=== PATIENT | female | born 1960 | race Two or more races ===

== ENCOUNTER 2017-07-14 15:49 | Emergency (ER) | payer OTHER ==
[~2017-07-14] VITALS: Ht 154.9 cm; Wt 84.4 kg
[~2017-07-14 15:49] MED LIST: ACYC800 PO; AMOX500 PO; AMOX875 PO; Acetaminophen650 M1 PO; Bentyl20 MG PO; CEPH500 PO; CIPR500 PO; CYCL10 PO; Cipro500 MG PO; Colace100 MG PO; DOCU100 PO; ESTR.1TPW TOP; FLUO10 PO; Flagyl500 MG PO; GAVILAX17 GM PO; GUAI600T33 PO; HYDACE5 PO; HYDMOR2 PO; IBUP600 PO; KETO75 PO; Keflex500 MG PO; LEVFLO500 PO; LORA1 PO; METR500 PO; MIMVEY 1-0.5 M1 EACH PO; MYRBETRIQ25 MG PO; NAPR500 PO; NEOPOLHCSU OT; NITR100CA PO; Naprosyn500 MG PO; Norco 5-325 Ta1 EACH PO; Norco 7.5-3251 EACH PO; ONDA4 PO; ONDA4ODT MM; OXYACE5T PO; OXYB5 PO; OXYC5 PO; PHENA200 PO; Percocet 10-321 EACH PO; Percocet 5-3251 EACH PO; RXHYDACE PO; Robaxin500 MG PO; SULTRIDS PO; TOBR.3OPSO OP; TOLT4; TROSPIUM CHLORI20 MG PO; [UNRECOGNIZED DRUG - REMARK]
[2017-07-14] MEDS ORDERED: LOSA25 PO (16:29)
[2017-07-14] MEDS ORDERED: Bupropion Xl150 MG PO (16:30)
[2017-07-14] MEDS ORDERED: TRAZ50 PO (16:31)
== END 2017-07-14 17:53 | disposition home or self-care (01) ==
LOC: ER 15:49
DX: K94.13 Enterostomy malfunction (principal); Z79.899 Other long term (current) drug therapy; Z87.891 Personal history of nicotine dependence

== ENCOUNTER → 2017-09-06 | Outpatient (CLI) | payer OTHER ==
[~2017-09-06] MED LIST changes: +Bupropion Xl150 MG PO; +LOSA25 PO; +TRAZ50 PO
== END | disposition home or self-care (01) ==
LOC: LAB 11:14 → LAB SHORT 11:14
PROVIDERS: Advanced Practice Midwife
DX: Z01.419 Encounter for gynecological examination (general) (routine) without abnormal findings (principal)
CPT/HCPCS: 87624; G0123

== ENCOUNTER 2018-11-16 21:11 | Emergency (ER) | payer OTHER ==
[~2018-11-16] VITALS: Ht 154.9 cm; Wt 97.5 kg
[2018-11-16] MEDS ORDERED: Paxil20 MG PO (21:37)
[2018-11-16] MEDS ORDERED: CYCL10 PO (21:52)
[2018-11-16] MEDS ORDERED: IBU600 MG PO (21:52)
[2018-11-16] MEDS ORDERED: LIDO700A20 TOP (21:52)
[2018-11-16 22:01] LABS: BASOPHILS ABSOLUTE AUTO 0.05 K/mm3 (0.00-0.23); BASOPHILS PERCENT AUTO 1 % (0-2); EOSINOPHILS PERCENT AUTO 2 % (0-6); Hematocrit 41.3 % (33.0-51.0); Hemoglobin 13.5 g/dL (11.5-16.0); IMMATURE GRAN ABSOLUTE AUTO 0.02 K/mm3 (0.00-0.10); IMMATURE GRAN PERCENT AUTO 0 % (0-1); LYMPHOCYTES ABSOLUTE AUTO 2.69 K/mm3 (0.84-5.20); LYMPHOCYTES PERCENT AUTO 26 % (21-46); MONOCYTES ABSOLUTE AUTO 0.61 K/mm3 (0.16-1.47); MONOCYTES PERCENT AUTO 6 % (4-13); Mean Corpuscular HGB Conc 32.7 g/dL (31.5-36.5); Mean Corpuscular Volume 86 fL (80-100); Mean Platelet Volume 10.3 fL (9.1-12.4); NEUTROPHILS ABSOLUTE AUTO 6.85 K/mm3 (1.96-9.15); NEUTROPHILS PERCENT AUTO 66 % (41-73); Platelet Count 261 K/mm3 (150-400); RDW Coefficient Variation 14.9 % (11.7-14.2); RDW Standard Deviation 47.3 fL (35.1-46.3); Red Blood Cell Count 4.83 M/mm3 (3.80-5.20); White Blood Cell Count 10.42 K/mm3 (4.00-11.30)
[2018-11-16 22:22] LABS: Alanine Aminotransfer (ALT/SGP 29 U/L (12-78); Albumin, Blood 3.5 g/dL (3.4-5.0); Albumin/Globulin Ratio 0.9 (0.8-1.8); Alk Phos 113 U/L (50-136); Anion Gap 8 mmol/L (6-16); Aspartate Aminotrans (AST/SGOT 18 U/L (12-37); Bilirubin, Total 0.3 mg/dL (0.1-1.0); Blood Urea Nitrogen 30 mg/dL (8-24); Bun/Creatinine Ratio 39.1 (12.0-20.0); CO2, Blood 26 mmol/L (21-32); Calcium, Blood 8.3 mg/dL (8.5-10.1); Chloride, Blood 113 mmol/L (98-108); Creatinine, Blood 0.77 mg/dL (0.40-1.00); Globulin, Blood 3.7 g/dL (2.2-4.0); Glomerular Filtration Rate >60 (60-); Glucose, Blood 134 mg/dL (70-99); Potassium, Blood 3.4 mmol/L (3.5-5.5); Sodium, Blood 147 mmol/L (136-145); Total Protein, Blood 7.2 g/dL (6.4-8.2); Troponin I <0.015 ng/mL (0.000-0.040)
== END 2018-11-16 23:37 | disposition home or self-care (01) ==
LOC: ER 21:11
PROVIDERS: Emergency Medicine
DX: S46.911A Strain of unspecified muscle, fascia and tendon at shoulder and upper arm level, right arm, initial encounter (principal); X58.XXXA Exposure to other specified factors, initial encounter; Z87.891 Personal history of nicotine dependence
CPT/HCPCS: 36415; 71046; 80053; 83880; 84484; 85025; 93005; 93010; 96374; 99284-25; J1885

== ENCOUNTER 2020-01-14 21:03 | Emergency (ER) | payer OTHER ==
[~2020-01-14] VITALS: Ht 154.9 cm; Wt 103.4 kg
[~2020-01-14 21:03] MED LIST changes: +IBU600 MG PO; +LIDO700A20 TOP; +Paxil20 MG PO
== END 2020-01-14 23:26 | disposition home or self-care (01) ==
LOC: ER 21:03
DX: S61.212A Laceration without foreign body of right middle finger without damage to nail, initial encounter (principal); Z87.891 Personal history of nicotine dependence; W26.9XXA Contact with unspecified sharp object(s), initial encounter
CPT/HCPCS: 12001; 99282

== ENCOUNTER 2021-03-09 01:08 | Observation (INO) | payer OTHER ==
[~2021-03-09] VITALS: Ht 154.9 cm; Wt 102.5 kg
[2021-03-09 01:55] LABS: BASOPHILS ABSOLUTE AUTO 0.06 K/mm3 (0.00-0.23); BASOPHILS PERCENT AUTO 1 % (0-2); EOSINOPHILS ABSOLUTE AUTO 0.25 K/mm3 (0.00-0.68); EOSINOPHILS PERCENT AUTO 2 % (0-6); Hematocrit 44.8 % (33.0-51.0); IMMATURE GRAN ABSOLUTE AUTO 0.05 K/mm3 (0.00-0.10); IMMATURE GRAN PERCENT AUTO 1 % (0-1); LYMPHOCYTES ABSOLUTE AUTO 3.19 K/mm3 (0.84-5.20); LYMPHOCYTES PERCENT AUTO 31 % (21-46); MONOCYTES ABSOLUTE AUTO 0.67 K/mm3 (0.16-1.47); MONOCYTES PERCENT AUTO 7 % (4-13); Mean Corpuscular HGB 28.5 pg (26.0-34.0); Mean Corpuscular HGB Conc 33.5 g/dL (31.5-36.5); Mean Corpuscular Volume 85 fL (80-100); Mean Platelet Volume 10.1 fL (9.1-12.4); NEUTROPHILS ABSOLUTE AUTO 6.11 K/mm3 (1.96-9.15); NEUTROPHILS PERCENT AUTO 59 % (41-73); Platelet Count 319 K/mm3 (150-400); RDW Coefficient Variation 15.8 % (11.7-14.2); RDW Standard Deviation 49.1 fL (35.1-46.3); Red Blood Cell Count 5.26 M/mm3 (3.80-5.20); White Blood Cell Count 10.33 K/mm3 (4.00-11.30)
[2021-03-09 02:08] LABS: Alanine Aminotransfer (ALT/SGP 40 U/L (12-78); Albumin, Blood 3.5 g/dL (3.4-5.0); Albumin/Globulin Ratio 0.9 (0.8-1.8); Alk Phos 104 U/L (50-136); Anion Gap 9 mmol/L (6-16); Aspartate Aminotrans (AST/SGOT 28 U/L (12-37); Bilirubin, Total 0.3 mg/dL (0.1-1.0); Blood Urea Nitrogen 25 mg/dL (8-24); Bun/Creatinine Ratio 30.3 (12.0-20.0); CO2, Blood 25 mmol/L (21-32); Calcium, Blood 9.4 mg/dL (8.5-10.1); Chloride, Blood 109 mmol/L (98-108); Creatinine, Blood 0.82 mg/dL (0.40-1.00); Globulin, Blood 3.7 g/dL (2.2-4.0); Glomerular Filtration Rate >60 (60-); Glucose, Blood 139 mg/dL (70-99); Potassium, Blood 4.1 mmol/L (3.5-5.5); Sodium, Blood 143 mmol/L (136-145); Total Protein, Blood 7.2 g/dL (6.4-8.2); Troponin I <0.015 ng/mL (0.000-0.040)
[2021-03-09 04:15] LABS: Influenza A, PCR NEGATIVE (NEGATIVE); Influenza B, PCR NEGATIVE (NEGATIVE); Resp Syncytial Virus, PCR NEGATIVE (NEGATIVE); SARS-Cov-2 (COVID-19) PCR, MMC NEGATIVE (NEGATIVE)
--- NOTE | 2021-03-09 07:09 | NUR ---
PT ARRIVED TO FLOOR FROM ER. PT A/O, VSS. PT REP MILD RUQ ABD PAIN MINIMAL, DECLINES NEED FOR PAIN MEDS. PT DENIES N/V. PT ORIENTED TO ROOM/CALL LIGHT, AND NPO STATUS. IVF RUNNING PER ORDERS. REPORT GIVEN TO DAY RN.
--- NOTE | 2021-03-09 12:35 | NUR ---
PT TO CT VIA WC
--- NOTE | 2021-03-09 13:07 | NUR ---
RETURNS FROM CT, IVF CONTINUED. MEDICATED FOR PAIN.
--- NOTE | 2021-03-09 17:45 | NUR ---
SHIFT SUMMARY DR GRIMES INTO SEE PT MID MORNING & ORDERED CT. PER CT RESULTS, HIDA SCAN ORDERED. DUE TO LATE NARCOTICS GIVEN & STAFFING/SCHEDULING IN IMAGING, HIDA WILL BE SCHEDULED TOMORROW @ 1000. NPO AFTER MN & NO NARCOTICS AFTER 0200. CLEAR LQ's AT THIS TIME; TOLERATING WELL.
--- NOTE | 2021-03-10 05:12 | NUR ---
SHIFT SUMMARY PT A/OX4, VS STABLE BUT SLIGHTLY HYPOTENSIVE AT TIMES. ASYMPTOMATIC. PT STATES LOW BLOOD PRESSURE IS "NORMAL." ABDOMINAL PAIN CONTROLLED OVER NIGHT X1 WITH PRN MEDS. ABD ROUND AND SOFT. HERNIA NOTED UPON ASSESSMENT. CONTINUOUS FLUIDS AND ANTIBIOTIC GIVEN PER ORDERS. VOIDING WITHOUT COMPLICATION.
--- NOTE | 2021-03-10 10:00 | NUR ---
[facility]
--- NOTE | 2021-03-10 14:50 | NUR ---
Pt. discharged to home. Family here to take pt. home. dc instructions explained and copy sent with pt.- personal belongings sent with pt. , denies pain at this time, denies nausea. w/c to exit.
== END 2021-03-10 14:59 | disposition home or self-care (01) ==
LOC: ER 01:08 → ERHOLD 01:09 → SURS 01:09
PROVIDERS: Emergency Medicine; ADMIT Surgery
DX: R10.11 Right upper quadrant pain (principal); K43.2 Incisional hernia without obstruction or gangrene; K80.20 Calculus of gallbladder without cholecystitis without obstruction; K76.0 Fatty (change of) liver, not elsewhere classified; E66.9 Obesity, unspecified; Z90.49 Acquired absence of other specified parts of digestive tract; Z87.19 Personal history of other diseases of the digestive system; Z87.891 Personal history of nicotine dependence; Z98.1 Arthrodesis status; Z20.822 Contact with and (suspected) exposure to COVID-19; Z68.41 Body mass index [BMI] 40.0-44.9, adult
CPT/HCPCS: 0241U; 74177; 76705; 78226; 80053; 83690; 84484; 85025; 93005; 93010; 96365; 96367; 96375; 96376; 99285-25; A9537; G0378; J0694; J0696; J1885; J2270; J2405; J3010; J7120; Q9967

== ENCOUNTER 2022-01-06 03:48 | Emergency (ER) | payer OTHER ==
[~2022-01-06] VITALS: Ht 154.9 cm; Wt 91.2 kg
[~2022-01-06 03:48] MED LIST changes: +MELO7.5
[2022-01-06 04:34] LABS: BASOPHILS ABSOLUTE AUTO 0.06 K/mm3 (0.00-0.23); BASOPHILS PERCENT AUTO 1 % (0-2); EOSINOPHILS ABSOLUTE AUTO 0.17 K/mm3 (0.00-0.68); EOSINOPHILS PERCENT AUTO 2 % (0-6); Hematocrit 44.5 % (33.0-51.0); Hemoglobin 15.1 g/dL (11.5-16.0); IMMATURE GRAN ABSOLUTE AUTO 0.05 K/mm3 (0.00-0.10); IMMATURE GRAN PERCENT AUTO 1 % (0-1); LYMPHOCYTES ABSOLUTE AUTO 2.35 K/mm3 (0.84-5.20); LYMPHOCYTES PERCENT AUTO 23 % (21-46); MONOCYTES ABSOLUTE AUTO 0.71 K/mm3 (0.16-1.47); MONOCYTES PERCENT AUTO 7 % (4-13); Mean Corpuscular HGB 29.4 pg (26.0-34.0); Mean Corpuscular HGB Conc 33.9 g/dL (31.5-36.5); Mean Corpuscular Volume 87 fL (80-100); Mean Platelet Volume 10.4 fL (9.1-12.4); NEUTROPHILS ABSOLUTE AUTO 7.05 K/mm3 (1.96-9.15); NEUTROPHILS PERCENT AUTO 68 % (41-73); Platelet Count 240 K/mm3 (150-400); RDW Coefficient Variation 14.4 % (11.7-14.2); RDW Standard Deviation 46.3 fL (35.1-46.3); Red Blood Cell Count 5.14 M/mm3 (3.80-5.20); White Blood Cell Count 10.39 K/mm3 (4.00-11.30)
[2022-01-06 05:11] LABS: Albumin, Blood 3.3 g/dL (3.4-5.0); Albumin/Globulin Ratio 0.9 (0.8-1.8); Bilirubin, Total 0.5 mg/dL (0.1-1.0); Bun/Creatinine Ratio 38.7 (12.0-20.0); Calcium, Blood 8.5 mg/dL (8.5-10.1); Creatinine, Blood 0.7 mg/dL (0.40-1.00); Globulin, Blood 3.7 g/dL (2.2-4.0); Magnesium, Blood 2.3 mg/dL (1.6-2.4); Potassium, Blood 3.4 mmol/L (3.5-5.5)
[2022-01-06 05:34] LABS: Influenza A, PCR NEGATIVE (NEGATIVE); Influenza B, PCR NEGATIVE (NEGATIVE); Resp Syncytial Virus, PCR NEGATIVE (NEGATIVE); SARS-Cov-2 (COVID-19) PCR, MMC NEGATIVE (NEGATIVE)
[2022-01-06] MEDS ORDERED: DOC250 PO (07:16)
[2022-01-06] MEDS ORDERED: ONDA4ODT MM (07:16)
== END 2022-01-06 07:44 | disposition home or self-care (01) ==
LOC: ER 03:48
PROVIDERS: Student in an Organized Health Care Education/Training Program
DX: K43.9 Ventral hernia without obstruction or gangrene (principal); E87.6 Hypokalemia; R11.2 Nausea with vomiting, unspecified; G89.29 Other chronic pain; M54.50 Low back pain, unspecified; Z20.822 Contact with and (suspected) exposure to COVID-19; Z87.891 Personal history of nicotine dependence
CPT/HCPCS: 0241U; 36415; 74177; 80053; 83690; 83735; 85025; 93005; 93010; 96374-59; 99284-25; A9270; J1885; Q9967

== ENCOUNTER 2022-06-01 04:13 | Emergency (ER) | payer OTHER ==
[~2022-06-01] VITALS: Ht 154.9 cm; Wt 86.2 kg
[~2022-06-01 04:13] MED LIST changes: +DOC250 PO
[2022-06-01] MEDS ORDERED: MELO7.5 (04:56)
[2022-06-01] MEDS ORDERED: Cyclobenzaprine5 MG (04:57)
[2022-06-01 05:17] LABS: BASOPHILS ABSOLUTE AUTO 0.05 K/mm3 (0.00-0.23); BASOPHILS PERCENT AUTO 1 % (0-2); EOSINOPHILS ABSOLUTE AUTO 0.18 K/mm3 (0.00-0.68); EOSINOPHILS PERCENT AUTO 2 % (0-6); Hematocrit 44.1 % (33.0-51.0); Hemoglobin 15.2 g/dL (11.5-16.0); IMMATURE GRAN ABSOLUTE AUTO 0.02 K/mm3 (0.00-0.10); IMMATURE GRAN PERCENT AUTO 0 % (0-1); LYMPHOCYTES ABSOLUTE AUTO 2.73 K/mm3 (0.84-5.20); LYMPHOCYTES PERCENT AUTO 35 % (21-46); MONOCYTES ABSOLUTE AUTO 0.54 K/mm3 (0.16-1.47); MONOCYTES PERCENT AUTO 7 % (4-13); Mean Corpuscular HGB 29.1 pg (26.0-34.0); Mean Corpuscular HGB Conc 34.5 g/dL (31.5-36.5); Mean Corpuscular Volume 84 fL (80-100); Mean Platelet Volume 10.6 fL (9.1-12.4); NEUTROPHILS ABSOLUTE AUTO 4.33 K/mm3 (1.96-9.15); NEUTROPHILS PERCENT AUTO 55 % (41-73); Platelet Count 244 K/mm3 (150-400); RDW Coefficient Variation 14.3 % (11.7-14.2); RDW Standard Deviation 44.3 fL (35.1-46.3); Red Blood Cell Count 5.23 M/mm3 (3.80-5.20); White Blood Cell Count 7.85 K/mm3 (4.00-11.30)
[2022-06-01 05:26] LABS: Source, Urine Straight Cath
[2022-06-01 05:32] LABS: Appearance, Urine Hazy (Clear); Bilirubin, Urine Neg (Neg); Blood, Urine 5+ (Neg); Color, Urine Yellow (P-Yellow); Glucose Qualitative, Urine Neg (Neg); Ketones, Urine Neg (Neg); Leukocyte Esterase, Urine Neg (Neg); Nitrite, Urine Pos (Neg); Protein, Urine 1+ (Neg); Urobilinogen, Urine NORM (Normal)
[2022-06-01 06:10] LABS: Calcium, Ionized (POC) 0.93 mmol/L (1.10-1.46); Chloride (POC) 113 mmol/L (98-108); Creatinine (POC) 0.5 mg/dL (0.6-1.0); Glucose (ISTAT POC) 84 mg/dL (70-99); Hemoglobin (POC) 9.5 g/dL (12.0-16.0); Potassium (POC) 2.5 mmol/L (3.5-5.5); Sodium (POC) 145 mmol/L (135-148); Total CO2 (POC) 17 mmol/L (21-32)
[2022-06-01 06:14] LABS: Bacteria Mod /hpf; Squamous Epithelial Cells Mod /hpf (Few); White Blood Cells, Urine 0-2 /hpf (0-5)
[2022-06-01 09:19] LABS: Test Name CHEM 8
[2022-06-01 12:37] LABS: Result SEE SEPERATE REPORT
== END 2022-06-01 07:33 | disposition home or self-care (01) ==
LOC: ER 04:13
PROVIDERS: Student in an Organized Health Care Education/Training Program
DX: R10.12 Left upper quadrant pain (principal); R11.2 Nausea with vomiting, unspecified; Z79.899 Other long term (current) drug therapy; Z87.891 Personal history of nicotine dependence
CPT/HCPCS: 51701; 74177; 80047; 80048; 81001; 85014; 85025; 87077; 87086; 87186; 93005; 93010; 96361; 96374-59; 96375-59; 99284-25; J2270; J2405; J7030; Q9967

== ENCOUNTER → 2022-07-25 | Outpatient (CLI) | payer OTHER ==
[~2022-07-25] MED LIST changes: +Cyclobenzaprine5 MG
[2022-07-26 18:11] LABS: ANA DIRECT Negative (Negative); ANTI-DNA (DS) AB QN <1 IU/mL (0-9); RNP ANTIBODIES <0.2 AI (0.0-0.9); SJOGREN'S ANTI-SS-A <0.2 AI (0.0-0.9); SJOGREN'S ANTI-SS-B <0.2 AI (0.0-0.9); SMITH ANTIBODIES <0.2 AI (0.0-0.9)
== END | disposition home or self-care (01) ==
LOC: LAB SHORT 13:06
PROVIDERS: Family Medicine
DX: M13.849 Other specified arthritis, unspecified hand (principal)
CPT/HCPCS: 85651; 86141

== ENCOUNTER 2022-10-31 11:59 | Emergency (ER) | payer OTHER ==
[~2022-10-31] VITALS: Ht 152.4 cm; Wt 82.5 kg
[2022-10-31 12:31] VITALS: BP 164/96
[2022-10-31 12:58] LABS: BASOPHILS ABSOLUTE AUTO 0.05 K/mm3 (0.00-0.23); BASOPHILS PERCENT AUTO 1 % (0-2); EOSINOPHILS ABSOLUTE AUTO 0.16 K/mm3 (0.00-0.68); EOSINOPHILS PERCENT AUTO 2 % (0-6); Hematocrit 40.4 % (33.0-51.0); Hemoglobin 13.4 g/dL (11.5-16.0); IMMATURE GRAN ABSOLUTE AUTO 0.01 K/mm3 (0.00-0.10); IMMATURE GRAN PERCENT AUTO 0 % (0-1); LYMPHOCYTES ABSOLUTE AUTO 2.04 K/mm3 (0.84-5.20); LYMPHOCYTES PERCENT AUTO 29 % (21-46); MONOCYTES ABSOLUTE AUTO 0.61 K/mm3 (0.16-1.47); MONOCYTES PERCENT AUTO 9 % (4-13); Mean Corpuscular HGB 27.9 pg (26.0-34.0); Mean Corpuscular HGB Conc 33.2 g/dL (31.5-36.5); Mean Corpuscular Volume 84 fL (80-100); Mean Platelet Volume 10.2 fL (9.1-12.4); NEUTROPHILS ABSOLUTE AUTO 4.26 K/mm3 (1.96-9.15); NEUTROPHILS PERCENT AUTO 60 % (41-73); Platelet Count 258 K/mm3 (150-400); RDW Coefficient Variation 14.1 % (11.7-14.2); RDW Standard Deviation 43.5 fL (35.1-46.3); White Blood Cell Count 7.13 K/mm3 (4.00-11.30)
[2022-10-31 13:27] LABS: Albumin, Blood 3.3 g/dL (3.4-5.0); Albumin/Globulin Ratio 0.9 (0.8-1.8); Bilirubin, Total 0.4 mg/dL (0.1-1.0); Bun/Creatinine Ratio 28.4 (12.0-20.0); Calcium, Blood 8.2 mg/dL (8.5-10.1); Creatinine, Blood 0.88 mg/dL (0.40-1.00); Globulin, Blood 3.6 g/dL (2.2-4.0); Potassium, Blood 3.6 mmol/L (3.5-5.5); Total Protein, Blood 6.9 g/dL (6.4-8.2)
== END 2022-10-31 16:16 | disposition home or self-care (01) ==
LOC: ER 11:59
PROVIDERS: Physician Assistant
DX: R51.9 Headache, unspecified (principal); Z79.899 Other long term (current) drug therapy; M19.90 Unspecified osteoarthritis, unspecified site; Z87.891 Personal history of nicotine dependence
CPT/HCPCS: 70450; 80053; 85025; J1200; J1885; J2765; J7030

== ENCOUNTER → 2022-11-12 | Outpatient (CLI) | payer OTHER ==
[2022-11-14 09:17] LABS: C DIFFICILE DNA NEGATIVE (Negative)
== END ==
LOC: LAB SHORT 09:05 → LAB 09:05 → LAB SHORT 11-13 09:05
PROVIDERS: Family Medicine
DX: K52.9 Noninfective gastroenteritis and colitis, unspecified (principal)
CPT/HCPCS: 87493; 89055

== ENCOUNTER → 2022-11-13 | Outpatient (CLI) | payer OTHER | LOC: LAB 13:15 → LAB SHORT 13:15 | DX: K52.9 Noninfective gastroenteritis and colitis, unspecified (principal) | CPT/HCPCS: 87177; 87209 ==

== ENCOUNTER → 2023-01-17 | Outpatient (CLI) | payer OTHER ==
[2023-01-19 12:55] LABS: Campylobacter Sp Not Detected (NOT DETECT); Enteroaggregative E. coli-EAEC Not Detected (NOT DETECT); Plesiomonas Shigelloides Not Detected (NOT DETECT); Salmonella Sp Not Detected (NOT DETECT); Vibrio Cholerae Not Detected (NOT DETECT); Vibrio Sp Not Detected (NOT DETECT); Yersinia Enterocolitica Not Detected (NOT DETECT)
[2023-01-19 12:56] LABS: Enteropathogenic E. coli-EPEC Detected (NOT DETECT); Enterotoxigenic E. coli-ETEC Not Detected (NOT DETECT)
[2023-01-19 12:57] LABS: Adenovirus F 40/41 Not Detected (NOT DETECT); Astrovirus Not Detected (NOT DETECT); Cryptosporidium Not Detected (NOT DETECT); Cyclospora Cayetanensis Not Detected (NOT DETECT); E. Coli O157 Not Detected (NOT DETECT); Entamoeba Histolytica Not Detected (NOT DETECT); Giardia Lamblia Not Detected (NOT DETECT); Norovirus GI/GII Not Detected (NOT DETECT); Shiga Toxin-prod E. coli-STEC Not Detected (NOT DETECT); Shigella/Enteroin E. coli-EIEC Not Detected (NOT DETECT)
[2023-01-19 12:58] LABS: Rotavirus A Not Detected (NOT DETECT); Sapovirus Not Detected (NOT DETECT)
== END | disposition home or self-care (01) ==
LOC: LAB SHORT 08:00 → LAB 08:00 → LAB FUT 01-16 07:55
PROVIDERS: Internal Medicine Gastroenterology
DX: R19.7 Diarrhea, unspecified (principal)
CPT/HCPCS: 87507

== ENCOUNTER → 2023-11-12 | Outpatient (CLI) | payer OTHER ==
[~2023-11-12] MED LIST changes: +DONE10 PO; +ESCI10 PO; +ZEBUTAL 50-3251 EAC1 PO
== END ==
LOC: LAB SHORT 17:08 → LAB 17:08
DX: R51.9 Headache, unspecified (principal)
CPT/HCPCS: 87077; 87086; 87186

== ENCOUNTER 2024-01-01 12:53 | Emergency (ER) | payer OTHER ==
[~2024-01-01] VITALS: Ht 154.9 cm; Wt 108.9 kg
[~2024-01-01 12:53] MED LIST changes: +MELO7.5 PO
[2024-01-01 13:36] LABS: BASOPHILS ABSOLUTE AUTO 0.03 K/mm3 (0.00-0.23); BASOPHILS PERCENT AUTO 0 % (0-2); EOSINOPHILS ABSOLUTE AUTO 0.16 K/mm3 (0.00-0.68); EOSINOPHILS PERCENT AUTO 1 % (0-6); Hematocrit 44.1 % (33.0-51.0); IMMATURE GRAN PERCENT AUTO 1 % (0-1); LYMPHOCYTES ABSOLUTE AUTO 2.45 K/mm3 (0.84-5.20); LYMPHOCYTES PERCENT AUTO 20 % (21-46); MONOCYTES ABSOLUTE AUTO 0.85 K/mm3 (0.16-1.47); MONOCYTES PERCENT AUTO 7 % (4-13); Mean Corpuscular HGB 28.9 pg (26.0-34.0); Mean Corpuscular Volume 85 fL (80-100); Mean Platelet Volume 10.2 fL (9.1-12.4); NEUTROPHILS ABSOLUTE AUTO 8.65 K/mm3 (1.96-9.15); NEUTROPHILS PERCENT AUTO 71 % (41-73); Platelet Count 279 K/mm3 (150-400); RDW Coefficient Variation 15.2 % (11.7-14.2); RDW Standard Deviation 47.1 fL (35.1-46.3); Red Blood Cell Count 5.19 M/mm3 (3.80-5.20); White Blood Cell Count 12.24 K/mm3 (4.00-11.30)
[2024-01-01 13:50] LABS: Albumin, Blood 3.5 g/dL (3.4-5.0); Albumin/Globulin Ratio 0.9 (0.8-1.8); Bilirubin, Total 0.5 mg/dL (0.1-1.0); Bun/Creatinine Ratio 44.9 (12.0-20.0); Calcium, Blood 8.8 mg/dL (8.5-10.1); Creatinine, Blood 0.78 mg/dL (0.40-1.00); Globulin, Blood 3.9 g/dL (2.2-4.0); Potassium, Blood 4.2 mmol/L (3.5-5.5); Total Protein, Blood 7.4 g/dL (6.4-8.2)
[2024-01-01] MEDS ORDERED: Lisinopril2.5 MG PO (15:38)
[2024-01-01] MEDS ORDERED: GEMTESA75 MG PO (15:38)
[2024-01-01] MEDS ORDERED: AMOX250 PO (15:40)
[2024-01-01] MEDS ORDERED: Prochlorperazine Edisylate 10 mg Vial IV ONE (17:35)
[2024-01-01] MEDS ORDERED: DiphenhydrAMINE HCL 25 MG Cap PO ONE (17:40)
[2024-01-01 18:47] VITALS: BP 113/67
== END 2024-01-01 19:00 | disposition home or self-care (01) ==
LOC: ER 12:53
PROVIDERS: Physician Assistant
DX: R51.9 Headache, unspecified (principal); Z87.891 Personal history of nicotine dependence; Z79.899 Other long term (current) drug therapy
CPT/HCPCS: 64405; 80053; 85025; 96374-59; 99284-25; A9270; J0780

== ENCOUNTER 2024-05-21 15:42 | Emergency (ER) | payer OTHER ==
[~2024-05-21] VITALS: Ht 154.9 cm; Wt 98.9 kg
[~2024-05-21 15:42] MED LIST changes: +AMOX250 PO; +GEMTESA75 MG PO; +Lisinopril2.5 MG PO
[2024-05-21] MEDS ORDERED: Ondansetron HCl 2 MG / ML 2ML Vial IV ONE ×2 (16:05→18:00)
[2024-05-21] MEDS ORDERED: Morphine Sulfate 4 MG/1 ML Injection IV ONE ×2 (16:05→18:00)
[2024-05-21 16:42] LABS: BASOPHILS ABSOLUTE AUTO 0.09 K/mm3 (0.00-0.23); BASOPHILS PERCENT AUTO 1 % (0-2); EOSINOPHILS ABSOLUTE AUTO 0.16 K/mm3 (0.00-0.68); EOSINOPHILS PERCENT AUTO 2 % (0-6); Hematocrit 43.7 % (33.0-51.0); Hemoglobin 14.5 g/dL (11.5-16.0); IMMATURE GRAN ABSOLUTE AUTO 0.11 K/mm3 (0.00-0.10); IMMATURE GRAN PERCENT AUTO 1 % (0-1); LYMPHOCYTES ABSOLUTE AUTO 1.87 K/mm3 (0.84-5.20); LYMPHOCYTES PERCENT AUTO 19 % (21-46); MONOCYTES PERCENT AUTO 8 % (4-13); Mean Corpuscular HGB 28.9 pg (26.0-34.0); Mean Corpuscular HGB Conc 33.2 g/dL (31.5-36.5); Mean Corpuscular Volume 87 fL (80-100); Mean Platelet Volume 9.9 fL (9.1-12.4); NEUTROPHILS ABSOLUTE AUTO 6.94 K/mm3 (1.96-9.15); NEUTROPHILS PERCENT AUTO 70 % (41-73); Platelet Count 266 K/mm3 (150-400); RDW Coefficient Variation 13.6 % (11.7-14.2); RDW Standard Deviation 43.5 fL (35.1-46.3); Red Blood Cell Count 5.01 M/mm3 (3.80-5.20); White Blood Cell Count 9.97 K/mm3 (4.00-11.30)
[2024-05-21 17:08] LABS: Albumin, Blood 3.4 g/dL (3.4-5.0); Albumin/Globulin Ratio 0.9 (0.8-1.8); Bilirubin, Total 0.4 mg/dL (0.1-1.0); Bun/Creatinine Ratio 31.7 (12.0-20.0); Creatinine, Blood 1.04 mg/dL (0.40-1.00); Globulin, Blood 3.8 g/dL (2.2-4.0); Potassium, Blood 3.7 mmol/L (3.5-5.5); Total Protein, Blood 7.2 g/dL (6.4-8.2)
[2024-05-21] MEDS ORDERED: Ketorolac Tromethamine 30mg Vial IV ONE (19:15)
[2024-05-21 20:15] VITALS: BP 136/83
[2024-05-21] MEDS ORDERED: METPRE4DP PO (20:23)
[2024-05-21] MEDS ORDERED: IBUP600 PO (20:23)
[2024-05-21] MEDS ORDERED: Dexamethasone Sod Phos 10 MG/ML 1ML VIAL IV ONE (20:25)
== END 2024-05-21 20:30 | disposition home or self-care (01) ==
LOC: ER 15:42
PROVIDERS: Emergency Medicine
DX: M54.10 Radiculopathy, site unspecified (principal); Z79.899 Other long term (current) drug therapy; Z79.2 Long term (current) use of antibiotics; M19.90 Unspecified osteoarthritis, unspecified site
CPT/HCPCS: 71045; 71275; 80053; 84484; 85025; 85379; 93005; 93010; 96374-59; 96375; 99285-25; J1885; J2270; J2405; Q9967